=== PATIENT | female | born 1950 | race Two or more races ===

== ENCOUNTER 2021-04-04 10:11 | Outpatient (REF) | payer MEDICARE, SELFPAY ==
[2021-04-04 13:56] LABS: MANUAL DIFF FLAG NO
[2021-04-04 14:03] LABS: Basophils Absolute Auto 0.1 X10*3/uL (0.0-0.2); Basophils Percent Auto 0.9 % (0-2); Eosinophils Absolute Auto 0.4 X10*3/uL (0.0-0.4); Hematocrit 39.8 % (37-47); Hemoglobin 12.8 g/dl (12.0-16.0); Imm Gran Abs Auto 0.03 X10*3/uL (0.00-0.03); Imm Gran Pct Auto 0.3 % (0.0-0.4); Lymphocytes Absolute Auto 2.7 X10*3/uL (1.2-4.9); Lymphocytes Percent Auto 30.5 % (20-40); Mean Corpuscular HGB Conc 32.2 g/dl (31.0-35.0); Mean Corpuscular Hemoglobin 28.1 pg (27.0-33.0); Mean Corpuscular Volume 87.5 fL (80-98); Mean Platelet Volume 9.7 fL (9.4-12.3); Monocytes Absolute Auto 0.5 X10*3/uL (0.1-1.2); Monocytes Percent Auto 5.4 % (2-11); Neutrophils Absolute Auto 5.1 X10*3/uL (2.0-8.3); Neutrophils Percent Auto 58.9 % (45-73); Platelet Count 366 X10*3/uL (160-400); Red Blood Count 4.55 X10*6/uL (4.20-5.50); Red Cell Distribution Width 13.3 % (11.0-16.0); White Blood Count 8.7 X10*3/uL (4.8-10.8)
[2021-04-04 14:16] LABS: Alanine Aminotransferase 14 U/L (0-31); Albumin Level 4.2 g/dL (3.5-5.0); Alkaline Phosphatase 120 U/L (39-117); Anion Gap 11 (12-20); Aspartate Amino Transferase 18 U/L (5-31); Bilirubin Total 0.5 mg/dL (0.0-1.0); Blood Urea Nitrogen 20 mg/dL (9-16); Calcium 10.1 mg/dL (8.4-10.2); Carbon Dioxide 27 mmol/L (22-29); Chloride 108 mmol/L (96-108); Cholesterol 152 mg/dL; Estimated Glomerular Filt Rate > 60; Glucose Random 127 mg/dL (60-115); HDL Cholesterol 46 mg/dL; LDL Cholesterol Calculated 90 mg/dl; Potassium 4.9 mmol/L (3.3-5.1); Sodium 141 mmol/L (135-145); Total Protein 7.5 g/dL (6.5-8.0); Triglycerides 81 mg/dL
[2021-04-04 14:37] LABS: Creatinine Urine 117.43 mg/dL; Microalbum/Creatinine Ratio Ur 8.5 ug/mg cr
[2021-04-04 14:41] LABS: Vitamin D 25-OH Total 29.8 ng/mL (>30)
[2021-04-04 14:48] LABS: Folate 10.9 ng/mL (> or = 4.0); Vitamin B12 > 2000 pg/mL (200-900)
[2021-04-04 14:49] LABS: Estimated Average Glucose 143 mg/dL; Hemoglobin A1C 149.2514 umol/L; Hemoglobin A1c % 6.6 %
== END 2021-04-04 10:12 | disposition home or self-care (01) ==
LOC: HO.10HDL 10:11
PROVIDERS: Visit Provider Internal Medicine
DX: E78.00 Pure hypercholesterolemia, unspecified (principal); E11.65 Type 2 diabetes mellitus with hyperglycemia; I10 Essential (primary) hypertension
CPT/HCPCS: 36415; 80053; 80061; 82043; 82306; 82607; 82746; 83036; 84439; 84443; 85025

== ENCOUNTER 2022-02-25 12:46 | Outpatient (REF) | payer MEDICARE, SELFPAY ==
--- NOTE | ~2022-02-25 | MM_ITS ---
EXAMINATION: BONE DENSITOMETRY CLINICAL INDICATION: Osteoporosis. COMPARISON: Previous BD dated 04/12/2019 and baseline BD dated 12/09/2012. TECHNIQUE: Using a [employer] DXA System (software version: 13.1) manufactured by [employer], dual-energy x-ray absorptiometry was performed of the lumbar spine and left hip. The images are of good technical quality. Summary results are attached. FINDINGS: AP SPINE L1-L4: Current: BMD 0.991 g/cm2, Z-score 0.0, T-score -1.6, osteopenia, 1.3% decrease from previous, 3.7% increase from baseline (<5% change is not significant). Prior: BMD 1.004 g/cm2. Baseline: BMD 0.956 g/cm2. LEFT FEMUR, NECK: Current: BMD 0.873 g/cm2, Z-score 0.5, T-score -1.2, osteopenia. Prior: BMD 0.901 g/cm2. Baseline: BMD 0.918 g/cm2. LEFT FEMUR, TOTAL: Current: BMD 0.851 g/cm2, Z-score 0.2, T-score -1.2, osteopenia, 6.4% decrease from previous, 4.0% decrease from baseline (<5% change is not significant). Prior: BMD 0.909 g/cm2. Baseline: BMD 0.886 g/cm2. IDENTIFIED RISK FACTORS: Menopause, rheumatoid arthritis. HISTORY OF FRACTURE: None listed. MEDICATIONS: Vitamin D. MM/XR DEXA axial skeleton IMPRESSION: 1. DIAGNOSIS: Osteopenia based on the lowest T-score value of -1.6 in the lumbar spine applying World Health Organization criteria. 2. 10-YEAR FRACTURE RISK PREDICTION, FRAX: Major osteoporotic fracture (clinical spine, forearm, hip or shoulder) 6.7%. Hip fracture 0.9%. 3. Treatment Recommendations: NOF guidelines recommend consideration for treatment in postmenopausal women and men age 50 and older presenting with the following: -A hip or vertebral (clinical or morphometric) fracture. -T-score less than or equal to -2.5 at the femoral neck or spine after appropriate evaluation to exclude secondary causes. -Low bone mass at the hip or spine and a 10-year fracture probability by FRAX of greater than or equal to 3% for hip fracture or greater than or equal to 20% for major osteoporotic fracture based on the [place] adapted WHO algorithm. 4. Other Recommendations: All treatment decisions require clinical judgment and consideration of individual patient factors, including patient preferences, comorbidities, previous drug use, risk factors not captured in the FRAX model (e.g. frailty, falls, vitamin D deficiency, increased bone turnover, interval significant decline in bone density) and possible under or overestimation of fracture risk by FRAX. Additional medical evaluation for secondary cause of low bone mineral density may be appropriate. FUTURE SCAN RECOMMENDATION: People with diagnosed cases of osteoporosis or at high risk for fracture should have regular bone mineral density tests. For patients eligible for Medicare, routine testing is allowed once every 2 years. The testing frequency can be increased to one year for patients who have rapidly progressing disease, those who are receiving or discontinuing medical therapy to restore bone mass, or have additional risk factors.
== END 2022-02-25 12:47 | disposition home or self-care (01) ==
LOC: HO.MAMMO 12:46
PROVIDERS: PCP Internal Medicine; Visit Provider Internal Medicine
DX: Z13.820 Encounter for screening for osteoporosis (principal); M81.0 Age-related osteoporosis without current pathological fracture; Z78.0 Asymptomatic menopausal state
CPT/HCPCS: 77080

== ENCOUNTER 2022-08-31 08:54 | Outpatient (REF) | payer MEDICARE, SELFPAY ==
[2022-08-31 10:40] LABS: MANUAL DIFF FLAG NO
[2022-08-31 10:45] LABS: Basophils Absolute Auto 0.1 X10*3/uL (0.0-0.2); Eosinophils Absolute Auto 0.3 X10*3/uL (0.0-0.4); Eosinophils Percent Auto 3.9 % (0-4); Hematocrit 42.3 % (37.0-47.0); Hemoglobin 13.8 g/dl (12.0-16.0); Imm Gran Abs Auto 0.01 X10*3/uL (0.00-0.03); Imm Gran Pct Auto 0.1 % (0.0-0.4); Lymphocytes Absolute Auto 2.8 X10*3/uL (1.2-4.9); Lymphocytes Percent Auto 36.7 % (20-40); Mean Corpuscular HGB Conc 32.6 g/dl (31.0-35.0); Mean Corpuscular Hemoglobin 28.8 pg (27.0-33.0); Mean Corpuscular Volume 88.1 fL (80.0-98.0); Mean Platelet Volume 9.5 fL (9.4-12.3); Monocytes Absolute Auto 0.5 X10*3/uL (0.1-1.2); Monocytes Percent Auto 5.9 % (2-11); Neutrophils Percent Auto 52.4 % (45-73); Platelet Count 350 X10*3/uL (160-400); Red Cell Distribution Width 13.3 % (11.0-16.0); White Blood Count 7.7 X10*3/uL (4.8-10.8)
[2022-08-31 11:05] LABS: Estimated Average Glucose 148 mg/dL; Hemoglobin A1c % 6.8 %
[2022-08-31 11:07] LABS: Alanine Aminotransferase 14 U/L (0-31); Albumin Level 4.2 g/dL (3.5-5.0); Alkaline Phosphatase 104 U/L (39-117); Anion Gap 13 (12-20); Aspartate Amino Transferase 18 U/L (5-31); Bilirubin Total 0.5 mg/dL (0.0-1.0); Blood Urea Nitrogen 20 mg/dL (9-16); Carbon Dioxide 27 mmol/L (22-29); Chloride 105 mmol/L (96-108); Cholesterol 186 mg/dL; Estimated Glomerular Filt Rate > 60; Glucose Random 141 mg/dL (60-115); HDL Cholesterol 51 mg/dL; LDL Cholesterol Calculated 112 mg/dl; Potassium 5.2 mmol/L (3.3-5.1); Sodium 140 mmol/L (135-145); Total Protein 7.3 g/dL (6.5-8.0); Triglycerides 117 mg/dL
[2022-08-31 11:31] LABS: Erythrocyte Sedimentation Rate 16 MM/HR (0-20)
[2022-08-31 11:38] LABS: Folate 7.6 ng/mL (> or = 4.0); Free T4 (Free Thyroxine) 0.98 ng/dL (0.71-1.85); Thyroid Stimulating Hormone 1.44 uIU/mL (0.32-4.0); Vitamin B12 651 pg/mL (200-900); Vitamin D 25-OH Total 30.7 ng/mL (>30)
[2022-08-31 14:39] LABS: Creatinine Urine 127.19 mg/dL
== END 2022-08-31 08:55 | disposition home or self-care (01) ==
LOC: HO.10HDL 08:54
PROVIDERS: Visit Provider Internal Medicine
DX: M06.9 Rheumatoid arthritis, unspecified (principal); I10 Essential (primary) hypertension; E78.00 Pure hypercholesterolemia, unspecified; E11.65 Type 2 diabetes mellitus with hyperglycemia; M81.0 Age-related osteoporosis without current pathological fracture
CPT/HCPCS: 36415; 80053; 80061; 82043; 82306; 82607; 82746; 83036; 84439; 84443; 85025; 85652

== ENCOUNTER 2023-03-29 12:26 | Outpatient (AMB) | payer MEDICARE, SELFPAY ==
[2023-03-29 12:35] VITALS: BP 122/80; PULSE 72; O2SAT 99; BMI 27.1
--- NOTE | 2023-03-29 12:35 | A.OFFPC_ITS ---
Vital Signs 03/29/23 12:35 Height 5 ft Weight 139 lb BMI 27.1 BP 122/80 Blood Pressure Location Lt brachial Position Sitting Pulse 72 Pulse Source Pulse Oximeter Temp Source Skin Pulse Oximetry (%) 99 Oxygen Delivery Method Room Air Intake Visit Reasons: 6 month follow up Intake Note: Patient is here to follow up on 6 months Presiding Judge Required: No Allergies lisinopril Allergy (Unknown, Verified 03/29/23 12:42) Unknown metformin Allergy (Unknown, Verified 03/29/23 12:42) unknown Medication List - Last Reconciled 03/29/23 by rGey Jaeger MD blood pressure monitor (Blood Pressure Kit) As directed blood sugar diagnostic (FreeStyle Lite Strips) 1 strip miscellaneous DAILY cholecalciferol (vitamin D3) 25 mcg PO DAILY 90 days glimepiride 4 mg PO QAM lancets (FreeStyle Lancets) 28 gauge topical DAILY olmesartan 20 mg PO DAILY simvastatin 40 mg PO BEDTIME Tobacco use date assessed: 03/29/23 Fall risk assessment: No Falls in past year Last assessed Fall Risk: 03/29/23 Dental Screening Dental Screen Date: 03/29/23 Did you have a dental visit in the last 12 months?: Yes Did you have a dental problem in the last 6 months where you did not have access to dental care?: No Was dental information given to patient?: Patient has dentist HPI 6 month follow up HPI Details 72-year-old overweight female with contr olled diabetes mellitus rheumatoid arthritis hypertension hypercholesterolemia and generalized anxiety disorder last seen in September 2022. Patient is here for follow-up. August 2022 last blood work [facility] Medical History (Updated 09/04/22 @ 14:27 by Grey Jaeger MD) Osteopenia Meléndez's palsy Hypertension Hypercholesterolemia Vitamin D deficiency Overweight (BMI 25.0-29.9) Rheumatoid arthritis Type 2 diabetes mellitus with hyperglycemia Surgical History No pertinent past surgical history Family History Father Diabetes Mother Diabetes Hypertension Brother Brain cancer Maternal Grandfather Colon cancer Social History (Updated 09/04/22 @ 14:28 by Grey Jaeger MD) Housing: Apartment Alcohol intake: current Alcohol intake frequency: holidays/special occasions only Patient Tobacco Use Status: Never used Tobacco e-Cigarette/Vaping Use: Never Used Second Hand Smoke Exposure: No service: No Current occupational status: retired Cognitive needs: No Hearing needs: No Vision needs: Yes (reading glasses) Questionnaire PHQ-9 Over the last 2 weeks, how often have you been bothered by any of the following problems? 1. Little interest or pleasure in doing things: not at all 2. Feeling down, depressed, or hopeless: not at all 3. Trouble falling or staying asleep, or sleeping too much: not at all 4. Feeling tired or having little energy: not at all 5. Poor appetite or overeating: not at all 6. Feeling bad about yourself - or that you are a failure or have let yourself or your family down: not at all 7. Trouble concentrating on things, such as reading the newspaper or watching television: not at all 8. Moving or speaking so slowly that other people could have noticed. Or the opposite - being so fidgety or restless that you have been moving around a lot more than usual: not at all 9. Thoughts that you would be better off or of hurting yourself in some way: not at all Total score: 0 Depression Screening Interpretation: Negative Source: Developed by Drs. Lencho Lowe, Paola Hong, Omar Kelley and colleagues, with an educational rosa from [employer]. Thrive Questionnaire Date Thrive assessed: 09/04/22 AUDIT C Alcohol Use Questionnaire (AUDIT-C) 1. How often do you have a drink containing alcohol?: Monthly or less 2. How many drinks containing alcohol do you have on a typical day when you are drinking?: 1 or 2 3. How often do you have six or more drinks on one occasion?: Never Total Score: 1 NELDA-7 AMB Questionnaire NELDA-7 Date NELDA - 7 assessed: 09/04/22 Feeling nervous, anxious, or on edge: 0 = Not at all Not being able to stop or control worryin = Not at all Worrying too much about different things: 0 = Not at all Trouble relaxin = Not at all Being so restless that it is hard to sit still: 0 = Not at all Becoming easily annoyed or irritable: 0 = Not at all Feeling afraid as if something awful might happen: 0 = Not at all Total NELDA-7 score (0-4 normal; 5-9 mild; 10-14 moderate; 15-21 severe): 0 Source: Developed by Drs. Lencho Lowe, Paola Hong, Omar Kelley and colleagues, with an educational rosa from [employer]. Physical exam (Primary Care) Vital Signs: Last Vital Signs Pulse 72 03/29/23 12:35 BP 122/80 03/29/23 12:35 Pulse Ox 99 03/29/23 12:35 Oxygen Delivery Method Room Air 03/29/23 12:35 BMI result Body Mass Index 27.1 Tobacco/Smoking Status: Tobacco use Status Tobacco use date assessed 03/29/23 03/29/23 12:44 Patient Tobacco Use Status Never used Tobacco 03/29/23 12:44 e-Cigarette/Vaping Use Never Used 03/29/23 12:44 PHQ-9: PHQ-9 Score PHQ-9: Total score 0 03/29/23 19:58 Depression Screening Interpretation: Negative Thrive Assessment: Date of Thrive Assessment Date Thrive assessed 09/04/22 03/29/23 12:44 Const General: alert; No acute distress Eyes Conjunctivae: conjunctivae normal Resp Auscultation: clear to auscultation bilaterally Cardio Rate: regular rate Rhythm: regular rhythm GI Inspection: Yes normal to inspection Extrem General: Yes normal to inspection and No edema Results AMB Hemoglobin A1c AMB Hemoglobin A1c 6.4 % Last Edit by JIA Yates on 03/29/23 12:49 Results Reviewed Results Reviewed: Laboratory Last Values Hgb A1c (Clinic) 6.4 % (4.0-6.0) H 03/29/23 12:35 Assessment and Plan Assessment & Plan (1) Type 2 diabetes mellitus with hyperglycemia: Comment: [facility] September [id number] Eyesight and surgery Ass. [id number] Code(s): E11.65 - Type 2 diabetes mellitus with hyperglycemia Qualifiers: Diabetes mellitus snf insulin use: without buttermaker continuous churn use Qualified Code(s): E11.65 - Type 2 diabetes mellitus with hyperglycemia Plan: Decrease the amount of carbohydrate intake, pasta, bread, rice and potatoes are all sugar and that is aside from all the sweet stuff, remember that fruits are good but they are Sweet also. Hemoglobin A1c goal of less than 7.0. Patient is on glimepiride 4 mg once a day (2) Overweight (BMI 25.0-29.9): Code(s): E66.3 - Overweight Plan: Diet and exercise (3) Hypertension: Code(s): I10 - Essential (primary) hypertension Qualifiers: Hypertension type: essential hypertension Qualified Code(s): I10 - Essential (primary) hypertension Plan: Continue with blood pressure medication. Decrease salt intake and exercise patient on olmesartan on 20 mg once a day (4) Hypercholesterolemia: Code(s): E78.00 - Pure hypercholesterolemia, unspecified Plan: Avoid fried foods, chicken skin, eggs, butter margarine, pastries and meat. Be it pork or beef they have a lot of cholesterol LDL goal of less than 100 and triglyceride of less than 150 Orders: Orders AMB Hemoglobin A1c Today E11.65 - Type 2 diabetes mellitus with hyperglycemia Medications: Refilled olmesartan 20 mg PO DAILY 90 tabs 2RF I10 - Essential (primary) hypertension simvastatin 40 mg PO BEDTIME 90 tabs 2RF E78.00 - Pure hypercholesterolemia, unspecified Coding Level of Care Code Est Pt Level 4 (94651) Diagnoses Type 2 diabetes mellitus with hyperglycemia, without long-term current use of insulin E11.65 Diabetes mellitus snf insulin use: without snf use Overweight (BMI 25.0-29.9) E66.3 Essential hypertension I10 Hypertension type: essential hypertension Hypercholesterolemia E78.00
== END 2023-03-29 13:11 | disposition home or self-care (01) ==
PROVIDERS: PCP Internal Medicine; Visit Provider Internal Medicine
DX: E11.65 Type 2 diabetes mellitus with hyperglycemia (principal)
CPT/HCPCS: 83036; 99214

== ENCOUNTER 2023-03-30 07:45 | Outpatient (REF) | payer MEDICARE, SELFPAY ==
[2023-03-30 09:42] LABS: Alanine Aminotransferase 11 U/L (0-31); Albumin Level 4.1 g/dL (3.5-5.0); Alkaline Phosphatase 104 U/L (39-117); Anion Gap 15 (12-20); Aspartate Amino Transferase 16 U/L (5-31); Bilirubin Total 0.3 mg/dL (0.0-1.0); Blood Urea Nitrogen 17 mg/dL (9-16); Calcium 9.9 mg/dL (8.4-10.2); Carbon Dioxide 25 mmol/L (22-29); Chloride 106 mmol/L (96-108); Cholesterol 146 mg/dL (<200); Estimated Glomerular Filt Rate > 60; Glucose Random 151 mg/dL (60-115); HDL Cholesterol 48 mg/dL (>40); LDL Cholesterol Calculated 83 mg/dL (<100); Potassium 4.2 mmol/L (3.3-5.1); Sodium 142 mmol/L (135-145); Total Protein 7.4 g/dL (6.5-8.0); Triglycerides 77 mg/dL (<150)
== END 2023-03-30 07:46 | disposition home or self-care (01) ==
LOC: HO.LAB 07:45
PROVIDERS: PCP Internal Medicine; Visit Provider Internal Medicine
DX: E78.00 Pure hypercholesterolemia, unspecified (principal)
CPT/HCPCS: 36415; 80053; 80061

== ENCOUNTER 2023-07-06 12:18 | Outpatient (AMB) | payer MEDICARE, SELFPAY ==
--- NOTE | 2023-07-06 12:31 | MHC.PC.OV ---
Vital Signs 07/06/23 12:34 Height 5 ft Weight 131 lb BMI 25.6 BP 118/78 Blood Pressure Location Lt brachial Position Sitting Pulse 77 Pulse Source Pulse Oximeter Pulse Oximetry (%) 99 Oxygen Delivery Method Room Air Intake Visit Reasons: cholesterol, DM Allergies lisinopril Allergy (Unknown, Verified 03/29/23 12:42) Unknown metformin Allergy (Unknown, Verified 03/29/23 12:42) unknown Medication List - Last Reconciled 07/06/23 by Grey Jaeger MD blood pressure monitor (Blood Pressure Kit) As directed blood sugar diagnostic (FreeStyle Lite Strips) 1 strip miscellaneous DAILY cholecalciferol (vitamin D3) 25 mcg PO DAILY 90 days glimepiride 4 mg PO QAM lancets (FreeStyle Lancets) 28 gauge topical DAILY olmesartan 20 mg PO DAILY simvastatin 40 mg PO BEDTIME Tobacco use date assessed: 07/06/23 Fall risk assessment: No Falls in past year Last assessed Fall Risk: 07/06/23 HPI cholesterol, DM HPI Details 72-year-old overweight female with controlled diabetes mellitus hypertension hypercholesterolemia last seen in March 2023. Patient comes in for follow-up. anxious about children but no other complains [facility] Medical History (Updated 09/04/22 @ 14:27 by Grey Jaeger MD) Osteopenia Meléndez's palsy Hypertension Hypercholesterolemia Vitamin D deficiency Overweight (BMI 25.0-29.9) Rheumatoid arthritis Type 2 diabetes mellitus with hyperglycemia Surgical History No pertinent past surgical history Family History Father Diabetes Mother Diabetes Hypertension Brother Brain cancer Maternal Grandfather Colon cancer Social History (Updated 09/04/22 @ 14:28 by Grey Jaeger MD) Housing: Apartment Alcohol intake: current Alcohol intake frequency: holidays/special occasions only Patient Tobacco Use Status: Never used Tobacco e-Cigarette/Vaping Use: Never Used Second Hand Smoke Exposure: No service: No Current occupational status: retired Cognitive needs: No Hearing needs: No Vision needs: Yes (reading glasses) Questionnaire Thrive Questionnaire Date Thrive assessed: 09/04/22 AUDIT C Alcohol Use Questionnaire (AUDIT-C) 1. How often do you have a drink containing alcohol?: Monthly or less 2. How many drinks containing alcohol do you have on a typical day when you are drinking?: 1 or 2 3. How often do you have six or more drinks on one occasion?: Never Total Score: 1 NELDA-7 AMB Questionnaire NELDA-7 Date NELDA - 7 assessed: 09/04/22 Source: Developed by Drs. Lencho Lowe, Paola Hong, Omar Kelley and colleagues, with an educational rosa from [employer]. Physical exam (Primary Care) Vital Signs: Last Vital Signs Pulse 77 07/06/23 12:34 BP 118/78 07/06/23 12:34 Pulse Ox 99 07/06/23 12:34 Oxygen Delivery Method Room Air 07/06/23 12:34 BMI result Body Mass Index 25.6 Tobacco/Smoking Status: Tobacco use Status Tobacco use date assessed 07/06/23 07/06/23 12:38 Patient Tobacco Use Status Never used Tobacco 07/06/23 12:32 e-Cigarette/Vaping Use Never Used 07/06/23 12:32 Thrive Assessment: Date of Thrive Assessment Date Thrive assessed 09/04/22 07/06/23 12:32 Const General: alert; No acute distress Eyes Conjunctivae: conjunctivae normal Resp Auscultation: clear to auscultation bilaterally Cardio Rate: regular rate Rhythm: regular rhythm GI Inspection: Yes normal to inspection Extrem General: Yes normal to inspection and No edema Results AMB Hemoglobin A1c AMB Hemoglobin A1c 7.8 % Last Edit by JIA Yates on 07/06/23 12:47 Assessment and Plan Assessment & Plan (1) Type 2 diabetes mellitus with hyperglycemia: Comment: [facility] September [id number] Eyesight and surgery Ass. [id number] Code(s): E11.65 - Type 2 diabetes mellitus with hyperglycemia Qualifiers: Diabetes mellitus termite control servicer insulin use: without termite control servicer use Qualified Code(s): E11.65 - Type 2 diabetes mellitus with hyperglycemia Plan: Decrease the amount of carbohydrate intake, pasta, bread, rice and potatoes are all sugar and that is aside from all the sweet stuff, remember that fruits are good but they are Sweet also. Hemoglobin A1c goal of less than 7.0 patient on glimepiride 4 mg once a day. AIC all of a sudden increased . would like tohold off new med (2) Overweight (BMI 25.0-29.9): Code(s): E66.3 - Overweight Plan: Diet and exercise (3) Hypertension: Code(s): I10 - Essential (primary) hypertension Qualifiers: Hypertension type: essential hypertension Qualified Code(s): I10 - Essential (primary) hypertension Plan: Continue with blood pressure medication. Decrease salt intake and exercise on almost start on 20 mg once a day (4) Hypercholesterolemia: Code(s): E78.00 - Pure hypercholesterolemia, unspecified Plan: Avoid fried foods, chicken skin, eggs, butter margarine, pastries and meat. Be it pork or beef they have a lot of cholesterol LDL goal of less than 100 and triglyceride of less than 150. Last blood work was done in March 2020 Orders: Orders Complete Blood Count Auto Diff 3 Months E11.65 - Type 2 diabetes mellitus with hyperglycemia Comprehensive Met. Panel 3 Months E11.65 - Type 2 diabetes mellitus with hyperglycemia Microalbumin, Random (w Creat) 3 Months E11.65 - Type 2 diabetes mellitus with hyperglycemia Creatinine Urine 3 Months E11.65 - Type 2 diabetes mellitus with hyperglycemia AMB Hemoglobin A1c Today E11.65 - Type 2 diabetes mellitus with hyperglycemia Free T4 (Free Thyroxine) 3 Months E11.65 - Type 2 diabetes mellitus with hyperglycemia Thyroid Stimulating Hormone 3 Months E11.65 - Type 2 diabetes mellitus with hyperglycemia Lipid Panel 3 Months E11.65 - Type 2 diabetes mellitus with hyperglycemia, E78.00 - Pure hypercholesterolemia, unspecified Vitamin B12 and Folate 3 Months E11.65 - Type 2 diabetes mellitus with hyperglycemia Vitamin D 25-OH Total 3 Months E11.65 - Type 2 diabetes mellitus with hyperglycemia Hemoglobin A1c 3 Months E11.65 - Type 2 diabetes mellitus with hyperglycemia Medications: Refilled glimepiride 4 mg PO QAM 90 tabs 2RF E11.65 - Type 2 diabetes mellitus with hyperglycemia Coding Level of Care Code Est Pt Level 4 (25929) Diagnoses Type 2 diabetes mellitus with hyperglycemia, without long-term current use of insulin E11.65 Diabetes mellitus termite control servicer insulin use: without usp use Overweight (BMI 25.0-29.9) E66.3 Essential hypertension I10 Hypertension type: essential hypertension Hypercholesterolemia E78.00
[2023-07-06 12:34] VITALS: BP 118/78; PULSE 77; O2SAT 99; BMI 25.6
== END 2023-07-06 12:57 | disposition home or self-care (01) ==
PROVIDERS: PCP Internal Medicine; Visit Provider Internal Medicine
DX: E11.65 Type 2 diabetes mellitus with hyperglycemia (principal); E66.3 Overweight; I10 Essential (primary) hypertension; E78.00 Pure hypercholesterolemia, unspecified
CPT/HCPCS: 83036; 99214

== ENCOUNTER 2023-10-04 09:24 | Outpatient (REF) | payer MEDICARE, SELFPAY ==
[2023-10-04 09:36] LABS: MANUAL DIFF FLAG NO
[2023-10-04 09:45] LABS: Basophils Absolute Auto 0.1 X10*3/uL (0.0-0.2); Basophils Percent Auto 0.6 % (0-2); Eosinophils Absolute Auto 0.2 X10*3/uL (0.0-0.4); Eosinophils Percent Auto 2.4 % (0-4); Hematocrit 40.3 % (37.0-47.0); Hemoglobin 13.2 g/dl (12.0-16.0); Imm Gran Abs Auto 0.03 X10*3/uL (0.00-0.03); Imm Gran Pct Auto 0.3 % (0.0-0.4); Lymphocytes Absolute Auto 2.6 X10*3/uL (1.2-4.9); Mean Corpuscular HGB Conc 32.8 g/dl (31.0-35.0); Mean Corpuscular Hemoglobin 29.1 pg (27.0-33.0); Mean Platelet Volume 9.1 fL (9.4-12.3); Monocytes Absolute Auto 0.5 X10*3/uL (0.1-1.2); Monocytes Percent Auto 5.8 % (2-11); Neutrophils Absolute Auto 5.3 x10*3/uL (2.0-8.3); Neutrophils Percent Auto 60.9 % (45-73); Platelet Count 331 X10*3/uL (160-400); Red Blood Count 4.53 X10*6/uL (4.20-5.50); Red Cell Distribution Width 13.5 % (11.0-16.0); White Blood Count 8.6 X10*3/uL (4.8-10.8)
[2023-10-04 09:55] LABS: Estimated Average Glucose 148 mg/dL; Hemoglobin A1c % 6.8 % (<6.0)
[2023-10-04 10:17] LABS: Alanine Aminotransferase 11 U/L (0-31); Albumin Level 4.2 g/dL (3.5-5.0); Alkaline Phosphatase 116 U/L (39-117); Anion Gap 11 (12-20); Aspartate Amino Transferase 14 U/L (5-31); Bilirubin Total 0.3 mg/dL (0.0-1.0); Blood Urea Nitrogen 31 mg/dL (9-16); Calcium 10.1 mg/dL (8.4-10.2); Carbon Dioxide 27 mmol/L (22-29); Chloride 110 mmol/L (96-108); Cholesterol 156 mg/dL (<200); Estimated Glomerular Filt Rate > 60; Glucose Random 161 mg/dL (60-115); HDL Cholesterol 51 mg/dL (>40); LDL Cholesterol Calculated 92 mg/dL (<100); Potassium 4.3 mmol/L (3.3-5.1); Sodium 144 mmol/L (135-145); Total Protein 7.6 g/dL (6.5-8.0); Triglycerides 69 mg/dL (<150)
[2023-10-04 10:42] LABS: Free T4 (Free Thyroxine) 1.02 ng/dL (0.71-1.85); Thyroid Stimulating Hormone 0.91 uIU/mL (0.32-4.0)
[2023-10-04 10:46] LABS: Creatinine Urine 89.64 mg/dL; Microalbum/Creatinine Ratio Ur 11.1 ug/mg cr (<30)
[2023-10-04 10:54] LABS: Folate 7.8 ng/mL (> or = 4.0); Vitamin B12 500 pg/mL (200-900)
== END 2023-10-04 09:25 | disposition home or self-care (01) ==
LOC: HO.LAB 09:24
PROVIDERS: PCP Internal Medicine; Visit Provider Internal Medicine
DX: E11.65 Type 2 diabetes mellitus with hyperglycemia (principal); E78.00 Pure hypercholesterolemia, unspecified
CPT/HCPCS: 36415; 80053; 80061; 82043; 82306; 82570; 82607; 82746; 83036; 84439; 84443; 85025

== ENCOUNTER 2023-10-05 13:17 | Outpatient (AMB) | payer MEDICARE, SELFPAY ==
[2023-10-05 13:18] VITALS: BP 142/80; PULSE 82; O2SAT 98; BMI 25.4
--- NOTE | 2023-10-05 13:18 | A.OFFPC_ITS ---
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 Allergies lisinopril Allergy (Unknown, Verified 10/05/23 13:19) Unknown metformin Allergy (Unknown, Verified 10/05/23 13:19) unknown Medication List - Last Reconciled 10/05/23 by Grey Jaeger MD blood pressure monitor (Blood Pressure Kit) As directed blood sugar diagnostic (FreeStyle Lite Strips) 1 strip miscellaneous DAILY cholecalciferol (vitamin D3) 25 mcg PO DAILY 90 days glimepiride 4 mg PO QAM lancets (FreeStyle Lancets) 28 gauge topical DAILY olmesartan 20 mg PO DAILY simvastatin 40 mg PO BEDTIME Tobacco use date assessed: 10/05/23 Fall risk assessment: No Falls in past year Last assessed Fall Risk: 10/05/23 Dental Screening Dental Screen Date: 03/29/23 HPI DM HPI Details 72-year-old female with diabetes mellitu s uncontrolled hypertension hypercholesterolemia last seen in July 2023. Patient has declined mammogram and colonoscopy. Is presently stressed out as the son and daughter have no methodist and has been smoking marijuana. [facility] Medical History (Updated 09/04/22 @ 14:27 by Grey Jaeger MD) Osteopenia Meléndez's palsy Hypertension Hypercholesterolemia Vitamin D deficiency Overweight (BMI 25.0-29.9) Rheumatoid arthritis Type 2 diabetes mellitus with hyperglycemia Surgical History No pertinent past surgical history Family History Father Diabetes Mother Diabetes Hypertension Brother Brain cancer Maternal Grandfather Colon cancer Social History (Updated 09/04/22 @ 14:28 by Grey Jaeger MD) Housing: Apartment Alcohol intake: current Alcohol intake frequency: holidays/special occasions only Patient Tobacco Use Status: Never used Tobacco e-Cigarette/Vaping Use: Never Used Second Hand Smoke Exposure: No service: No Current occupational status: retired Cognitive needs: No Hearing needs: No Vision needs: Yes (reading glasses) Questionnaire Thrive Questionnaire Date Thrive assessed: 10/05/23 I am a: Patient What is your living situation today?: I have a steady place to live Within the past 12 months, did the food you bought not last and you didn't have the money to get more?: Never true Within the past 12 months, did you worry whether your food would run out before you got money to buy more?: Never true Do you have trouble paying for medicines?: No Do you have trouble getting transportation to medical appointments?: No Do you have trouble paying your heating and electricity bill?: No Do you have trouble taking care of your child, family member or friend?: No Do you have trouble with day-to-day activities such as bathing, preparing meals, shopping, managing finances, etc.?: No Are you currently unemployed and looking for a job?: No Are you interested in more education?: No Please select the resources that you would like help with: None Currently or been in a relationship where the following occur: no concerns reported THRIVE Score: 0 AUDIT C Alcohol Use Questionnaire (AUDIT-C) 1. How often do you have a drink containing alcohol?: Monthly or less 2. How many drinks containing alcohol do you have on a typical day when you are drinking?: 1 or 2 3. How often do you have six or more drinks on one occasion?: Never Total Score: 1 NELDA-7 AMB Questionnaire NELDA-7 Date NELDA - 7 assessed: 09/04/22 Source: Developed by Drs. Lencho Lowe, Paola Hong, Omar Kelley and colleagues, with an educational rosa from [employer] Physical exam (Primary Care) Vital Signs: Last Vital Signs Pulse 82 10/05/23 13:18 BP 142/80 H 10/05/23 13:18 Pulse Ox 98 10/05/23 13:18 Oxygen Delivery Method Room Air 10/05/23 13:18 BMI result Body Mass Index 25.4 Tobacco/Smoking Status: Tobacco use Status Tobacco use date assessed 10/05/23 10/05/23 13:20 Patient Tobacco Use Status Never used Tobacco 10/05/23 13:20 e-Cigarette/Vaping Use Never Used 10/05/23 13:20 Thrive Assessment: Date of Thrive Assessment Date Thrive assessed 10/05/23 10/05/23 13:20 Currently or been in a relationship where the following occur: no concerns reported Const General: alert; No acute distress Eyes Conjunctivae: conjunctivae normal Resp Auscultation: clear to auscultation bilaterally Cardio Rate: regular rate Rhythm: regular rhythm GI Inspection: Yes normal to inspection Extrem General: Yes normal to inspection and No edema Assessment and Plan Assessment & Plan (1) Type 2 diabetes mellitus with hyperglycemia: Comment: [facility] September [id number] Eyesight and surgery Ass. [id number] Code(s): E11.65 - Type 2 diabetes mellitus with hyperglycemia Qualifiers: Diabetes mellitus parts counterman insulin use: without half-way use Qualified Code(s): E11.65 - Type 2 diabetes mellitus with hyperglycemia Plan: Decrease the amount of carbohydrate intake, pasta, bread, rice and potatoes are all sugar and that is aside from all the sweet stuff, remember that fruits are good but they are Sweet also. Hemoglobin A1c goal of less than 7.0. Patient on glimepiride 4 mg once a day. Denies any hypoglycemic episodes (2) Hypertension: Code(s): I10 - Essential (primary) hypertension Qualifiers: Hypertension type: essential hypertension Qualified Code(s): I10 - Essential (primary) hypertension Plan: Continue with blood pressure medication. Decrease salt intake and exercise presently on olmesartan 20 mg once a day. noted BP davis today - states stressful day today (3) Hypercholesterolemia: Code(s): E78.00 - Pure hypercholesterolemia, unspecified Plan: Avoid fried foods, chicken skin, eggs, butter margarine, pastries and meat. Be it pork or beef they have a lot of cholesterol LDL goal of less than 100 and triglyceride of less than 150. October 2023 last blood work (4) Generalized anxiety disorder: Code(s): F41.1 - Generalized anxiety disorder Coding Level of Care Code Est Pt Level 4 (66847) Diagnoses Type 2 diabetes mellitus with hyperglycemia, without long-term current use of insulin E11.65 Diabetes mellitus parts counterman insulin use: without parts counterman use Essential hypertension I10 Hypertension type: essential hypertension Hypercholesterolemia E78.00 Generalized anxiety disorder F41.1
[2023-10-05 13:46] VITALS: BP 140/80
== END 2023-10-05 14:01 | disposition home or self-care (01) ==
PROVIDERS: PCP Internal Medicine; Visit Provider Internal Medicine
DX: E11.65 Type 2 diabetes mellitus with hyperglycemia (principal); I10 Essential (primary) hypertension; E78.00 Pure hypercholesterolemia, unspecified; F41.1 Generalized anxiety disorder
CPT/HCPCS: 99214

== ENCOUNTER 2024-02-24 12:51 | Outpatient (AMB) | payer MEDICARE, SELFPAY ==
[2024-02-24 12:52] VITALS: BP 142/80; PULSE 71; O2SAT 97; BMI 25.0
--- NOTE | 2024-02-24 12:52 | A.OFFPC_ITS ---
Vital Signs 02/24/24 12:52 02/24/24 13:18 Height 5 ft Weight 128 lb BMI 25.0 BP 142/80 H 132/80 Blood Pressure Location Lt brachial Lt brachial Position Sitting Sitting Pulse 71 Pulse Source Pulse Oximeter Pulse Oximetry (%) 97 Oxygen Delivery Method Room Air Intake Visit Reasons: DM Allergies lisinopril Allergy (Unknown, Verified 02/24/24 12:53) Unknown metformin Allergy (Unknown, Verified 02/24/24 12:53) unknown Tobacco use date assessed: 10/05/23 Fall risk assessment: No Falls in past year Last assessed Fall Risk: 02/24/24 Dental Screening Dental Screen Date: 02/24/24 Did you have a dental visit in the last 12 months?: Yes Did you have a dental problem in the last 6 months where you did not have access to dental care?: No Was dental information given to patient?: Patient has dentist HPI DM HPI Details 73-year-old female with uncontrolled viviana betes mellitus hypertension hypercholesterolemia and generalized anxiety disorder last seen in 10/23/2023. aic in october is 6.8. deny hypoglycemia [facility] Medical History (Updated 09/04/22 @ 14:27 by Grey Jaeger MD) Osteopenia Meléndez's palsy Hypertension Hypercholesterolemia Vitamin D deficiency Overweight (BMI 25.0-29.9) Rheumatoid arthritis Type 2 diabetes mellitus with hyperglycemia Surgical History No pertinent past surgical history Family History Father Diabetes Mother Diabetes Hypertension Brother Brain cancer Maternal Grandfather Colon cancer Social History (Updated 09/04/22 @ 14:28 by Grey Jaeger MD) Housing: Apartment Alcohol intake: current Alcohol intake frequency: holidays/special occasions only Patient Tobacco Use Status: Never used Tobacco Tobacco use type: Cigarette e-Cigarette/Vaping Use: Never Used Second Hand Smoke Exposure: No service: No Current occupational status: retired Cognitive needs: No Hearing needs: No Vision needs: Yes (reading glasses) Questionnaire PHQ-9 Over the last 2 weeks, how often have you been bothered by any of the following problems? 1. Little interest or pleasure in doing things: not at all 2. Feeling down, depressed, or hopeless: not at all 3. Trouble falling or staying asleep, or sleeping too much: not at all 4. Feeling tired or having little energy: not at all 5. Poor appetite or overeating: not at all 6. Feeling bad about yourself - or that you are a failure or have let yourself or your family down: not at all 7. Trouble concentrating on things, such as reading the newspaper or watching television: not at all 8. Moving or speaking so slowly that other people could have noticed. Or the opposite - being so fidgety or restless that you have been moving around a lot more than usual: not at all 9. Thoughts that you would be better off or of hurting yourself in some way: not at all Total score: 0 Depression Screening Interpretation: Negative Depression Screening Done: Yes Source: Developed by Drs. Lencho Lowe, Paola Hong, Omar Kelley and colleagues, with an educational rosa from [employer]. Thrive Questionnaire Date Thrive assessed: 10/05/23 AUDIT C Alcohol Use Questionnaire (AUDIT-C) 1. How often do you have a drink containing alcohol?: Monthly or less 2. How many drinks containing alcohol do you have on a typical day when you are drinking?: 1 or 2 3. How often do you have six or more drinks on one occasion?: Never Total Score: 1 NELDA-7 AMB Questionnaire NELDA-7 Date NELDA - 7 assessed: 02/24/24 Feeling nervous, anxious, or on edge: 0 = Not at all Not being able to stop or control worryin = Not at all Worrying too much about different things: 0 = Not at all Trouble relaxin = Not at all Being so restless that it is hard to sit still: 0 = Not at all Becoming easily annoyed or irritable: 0 = Not at all Feeling afraid as if something awful might happen: 0 = Not at all Total NELDA-7 score (0-4 normal; 5-9 mild; 10-14 moderate; 15-21 severe): 0 Source: Developed by Drs. Lencho Lowe, Paola Hong, Omar Kelley and colleagues, with an educational rosa from [employer]. NELDA-7 Assessment Billing NELDA-7 Assessment Tool: NELDA-7 Assessment 32671 Physical exam (Primary Care) Vital Signs: Last Vital Signs Pulse 71 02/24/24 12:52 BP 132/80 02/24/24 13:18 Pulse Ox 97 02/24/24 12:52 Oxygen Delivery Method Room Air 02/24/24 12:52 BMI result Body Mass Index 25.0 Tobacco/Smoking Status: Tobacco use Status Tobacco use date assessed 10/05/23 02/24/24 12:54 Patient Tobacco Use Status Never used Tobacco 02/24/24 12:54 Tobacco use type Cigarette 02/24/24 12:54 e-Cigarette/Vaping Use Never Used 02/24/24 12:54 PHQ-9: PHQ-9 Score PHQ-9: Total score 0 02/24/24 13:13 Depression Screening Interpretation: Negative Thrive Assessment: Date of Thrive Assessment Date Thrive assessed 10/05/23 02/24/24 12:54 Const General: alert; No acute distress Eyes Conjunctivae: conjunctivae normal Resp Auscultation: clear to auscultation bilaterally Cardio Rate: regular rate Rhythm: regular rhythm GI Inspection: Yes normal to inspection Extrem General: Yes normal to inspection and No edema Results AMB Hemoglobin A1c AMB Hemoglobin A1c 7.3 % Last Edit by Lynda Reyes CMA on 02/24/24 13:26 Assessment and Plan Assessment & Plan (1) Type 2 diabetes mellitus with hyperglycemia: Comment: [facility] September [id number] Eyesight and surgery Ass. [id number] Code(s): E11.65 - Type 2 diabetes mellitus with hyperglycemia Qualifiers: Diabetes mellitus detention insulin use: without long term care pharmacist use Qualified Code(s): E11.65 - Type 2 diabetes mellitus with hyperglycemia Plan: Decrease the amount of carbohydrate intake, pasta, bread, rice and potatoes are all sugar and that is aside from all the sweet stuff, remember that fruits are good but they are Sweet also. Hemoglobin A1c goal of less than 7.0 on glimepiride decline another pill (2) Hypertension: Code(s): I10 - Essential (primary) hypertension Qualifiers: Hypertension type: essential hypertension Qualified Code(s): I10 - Essential (primary) hypertension Plan: Continue with blood pressure medication. Decrease salt intake and exercise takes olmesartan 20 mg once a day (3) Hypercholesterolemia: Code(s): E78.00 - Pure hypercholesterolemia, unspecified Plan: Avoid fried foods, chicken skin, eggs, butter margarine, pastries and meat. Be it pork or beef they have a lot of cholesterol LDL goal of less than 100 and triglyceride of less than 150 on simvastatin 40 mg at bedtime (4) Generalized anxiety disorder: Code(s): F41.1 - Generalized anxiety disorder Plan: Stable. Orders: Orders AMB Hemoglobin A1c Today E11.65 - Type 2 diabetes mellitus with hyperglycemia Medications: Refilled glimepiride 4 mg PO QAM 90 tabs 2RF E11.65 - Type 2 diabetes mellitus with hyperglycemia olmesartan 20 mg PO DAILY 90 tabs 2RF I10 - Essential (primary) hypertension simvastatin 40 mg PO BEDTIME 90 tabs 2RF E78.00 - Pure hypercholesterolemia, unspecified Coding Level of Care Code Est Pt Level 4 (19057) Diagnoses Type 2 diabetes mellitus with hyperglycemia, without long-term current use of insulin E11.65 Diabetes mellitus long term care pharmacist insulin use: without long term care pharmacist use Essential hypertension I10 Hypertension type: essential hypertension Hypercholesterolemia E78.00 Generalized anxiety disorder F41.1 Additional Codes NELDA-7 Assessment Billing - NELDA-7 Assessment Tool: NELDA-7 Assessment 35375 ([id number])
[2024-02-24 13:18] VITALS: BP 132/80
== END 2024-02-24 13:43 | disposition home or self-care (01) ==
PROVIDERS: PCP Internal Medicine; Visit Provider Internal Medicine
DX: E11.65 Type 2 diabetes mellitus with hyperglycemia (principal); I10 Essential (primary) hypertension; E78.00 Pure hypercholesterolemia, unspecified; F41.1 Generalized anxiety disorder
CPT/HCPCS: 83036; 99214

== ENCOUNTER 2024-08-25 13:31 | Outpatient (AMB) | payer MEDICARE, SELFPAY ==
[2024-08-25 13:34] VITALS: BP 132/70; PULSE 71; O2SAT 95; BMI 25.2
--- NOTE | 2024-08-25 13:34 | MHC.PC.OV ---
Vital Signs 08/25/24 13:34 Height 5 ft Weight 58.513 kg BMI 25.2 BP 132/70 Blood Pressure Location Lt brachial Position Sitting Pulse 71 Pulse Source Pulse Oximeter Pulse Oximetry (%) 95 Oxygen Delivery Method Room Air Intake Visit Reasons: DM follow up- see comments Intake Note: Patient does have cold symptoms, and is taking Tylenol cold and flu. Allergies lisinopril Allergy (Unknown, Verified 08/25/24 13:34) Unknown metformin Allergy (Unknown, Verified 08/25/24 13:34) unknown Tobacco use date assessed: 08/25/24 Fall risk assessment: No Falls in past year Last assessed Fall Risk: 08/25/24 Dental Screening Dental Screen Date: 08/25/24 Did you have a dental visit in the last 12 months?: Yes Did you have a dental problem in the last 6 months where you did not have access to dental care?: No Was dental information given to patient?: Patient has dentist HPI DM follow up- see comments HPI Details cough 1 week, no fevers, no sore throat , no sob, no b/b sx PFSH Medical History (Updated 08/25/24 @ 13:59 by Grey Jaeger MD) Osteopenia Meléndez's palsy Hypertension Hypercholesterolemia Vitamin D deficiency Overweight (BMI 25.0-29.9) Rheumatoid arthritis Type 2 diabetes mellitus with hyperglycemia Surgical History No pertinent past surgical history Family History (Updated 08/25/24 @ 13:35 by Nicole Freeman CMA) Father Diabetes Mother Diabetes Hypertension Brother Brain cancer Maternal Grandfather Colon cancer Social History (Updated 09/04/22 @ 14:28 by Grey Jaeger MD) Housing: Apartment Alcohol intake: current Alcohol intake frequency: holidays/special occasions only Patient Tobacco Use Status: Never used Tobacco Tobacco use type: Cigarette e-Cigarette/Vaping Use: Never Used Second Hand Smoke Exposure: No service: No Current occupational status: retired Cognitive needs: No Hearing needs: No Vision needs: Yes (reading glasses) Questionnaire PHQ-9 Over the last 2 weeks, how often have you been bothered by any of the following problems? 1. Little interest or pleasure in doing things: not at all 2. Feeling down, depressed, or hopeless: not at all 3. Trouble falling or staying asleep, or sleeping too much: not at all 4. Feeling tired or having little energy: not at all 5. Poor appetite or overeating: not at all 6. Feeling bad about yourself - or that you are a failure or have let yourself or your family down: not at all 7. Trouble concentrating on things, such as reading the newspaper or watching television: not at all 8. Moving or speaking so slowly that other people could have noticed. Or the opposite - being so fidgety or restless that you have been moving around a lot more than usual: not at all 9. Thoughts that you would be better off or of hurting yourself in some way: not at all Total score: 0 Depression Screening Interpretation: Negative Depression Screening Done: Yes Source: Developed by Drs. Lencho Lowe, Paola Hong, Omar Kelley and colleagues, with an educational rosa from [employer]. Thrive Questionnaire Date Thrive assessed: 08/25/24 I am a: Patient What is your living situation today?: I have a steady place to live Within the past 12 months, did the food you bought not last and you didn't have the money to get more?: Never true Within the past 12 months, did you worry whether your food would run out before you got money to buy more?: Never true Do you have trouble paying for medicines?: No Do you have trouble getting transportation to medical appointments?: No Do you have trouble paying your heating and electricity bill?: No Do you have trouble taking care of your child, family member or friend?: No Do you have trouble with day-to-day activities such as bathing, preparing meals, shopping, managing finances, etc.?: No Are you currently unemployed and looking for a job?: No Are you interested in more education?: No Currently or been in a relationship where the following occur: No concerns reported THRIVE Score: 0 AUDIT C Alcohol Use Questionnaire (AUDIT-C) 1. How often do you have a drink containing alcohol?: Monthly or less 2. How many drinks containing alcohol do you have on a typical day when you are drinking?: 1 or 2 3. How often do you have six or more drinks on one occasion?: Never Total Score: 1 NELDA-7 AMB Questionnaire NELDA-7 Date NELDA - 7 assessed: 08/25/24 Feeling nervous, anxious, or on edge: 0 = Not at all Not being able to stop or control worryin = Not at all Worrying too much about different things: 0 = Not at all Trouble relaxin = Not at all Being so restless that it is hard to sit still: 0 = Not at all Becoming easily annoyed or irritable: 0 = Not at all Feeling afraid as if something awful might happen: 0 = Not at all Total NELDA-7 score (0-4 normal; 5-9 mild; 10-14 moderate; 15-21 severe): 0 Source: Developed by Drs. Lencho Lowe, Paola Hong, Omar Kelley and colleagues, with an educational rosa from [employer]. NELDA-7 Assessment Billing NELDA-7 Assessment Tool: NELDA-7 Assessment 93442 Physical exam (Primary Care) Vital Signs: Last Vital Signs Pulse 71 08/25/24 13:34 BP 132/70 08/25/24 13:34 Pulse Ox 95 08/25/24 13:34 Oxygen Delivery Method Room Air 08/25/24 13:34 BMI result Body Mass Index 25.2 Tobacco/Smoking Status: Tobacco use Status Tobacco use date assessed 08/25/24 08/25/24 13:37 Patient Tobacco Use Status Never used Tobacco 08/25/24 13:37 Tobacco use type Cigarette 08/25/24 13:37 e-Cigarette/Vaping Use Never Used 08/25/24 13:37 PHQ-9: PHQ-9 Score PHQ-9: Total score 0 08/25/24 13:58 Depression Screening Interpretation: Negative Thrive Assessment: Date of Thrive Assessment Date Thrive assessed 08/25/24 08/25/24 13:39 Currently or been in a relationship where the following occur: No concerns reported Const General: alert; No acute distress Eyes Conjunctivae: conjunctivae normal Resp Auscultation: clear to auscultation bilaterally Cardio Rate: regular rate Rhythm: regular rhythm GI Inspection: Yes normal to inspection Extrem General: Yes normal to inspection and No edema Results AMB Hemoglobin A1c AMB Hemoglobin A1c 7.0 % Last Edit by Nicole Freeman CMA on 08/25/24 13:59 Results Reviewed Results Reviewed: Laboratory Last Values Hgb A1c (Clinic) 7.0 % (4.0-6.0) H 08/25/24 13:39 Coding Level of Care Code Est Pt Level 4 (39100) Diagnoses Type 2 diabetes mellitus with hyperglycemia, without long-term current use of insulin E11.65 Diabetes mellitus halfway insulin use: without terminal gauger supervisor use Essential hypertension I10 Hypertension type: essential hypertension Hypercholesterolemia E78.00 Generalized anxiety disorder F41.1 Viral respiratory illness J98.8; B97.89 Additional Codes NELDA-7 Assessment Billing - NELDA-7 Assessment Tool: NELDA-7 Assessment 34916 ([id number]) Assessment & Plan Assessment & Plan (1) Type 2 diabetes mellitus with hyperglycemia: Comment: [facility] September 2021, 2022 Eyesight and surgery Ass. [id number] Code(s): E11.65 - Type 2 diabetes mellitus with hyperglycemia Category: Medical Qualifiers: Diabetes mellitus terminal gauger supervisor insulin use: without terminal gauger supervisor use Qualified Code(s): E11.65 - Type 2 diabetes mellitus with hyperglycemia Plan: Decrease the amount of carbohydrate intake, pasta, bread, rice and potatoes are all sugar and that is aside from all the sweet stuff, remember that fruits are good but they are Sweet also. Hemoglobin A1c goal of less than 7.0 patient takes glimepiride 4 mg once a day (2) Hypertension: Code(s): I10 - Essential (primary) hypertension Category: Medical Qualifiers: Hypertension type: essential hypertension Qualified Code(s): I10 - Essential (primary) hypertension Plan: Continue with blood pressure medication. Decrease salt intake and exercise on olmesartan 20 mg once a day (3) Hypercholesterolemia: Code(s): E78.00 - Pure hypercholesterolemia, unspecified Category: Medical Plan: Avoid fried foods, chicken skin, eggs, butter margarine, pastries and meat. Be it pork or beef they have a lot of cholesterol LDL goal of less than 100 and triglyceride of less than 150 last blood work was done in October will need another request for blood test. (4) Generalized anxiety disorder: Code(s): F41.1 - Generalized anxiety disorder Category: Medical Plan: Stable (5) Viral respiratory illness: Code(s): J98.8 - Other specified respiratory disorders; B97.89 - Other viral agents as the cause of diseases classified elsewhere Category: Medical Plan: increase fluid intake, rest can take tylenol Plan History of Present Illness History of Present Illness The patient is a 73-year-old female presenting with diabetes management and recent respiratory symptoms. The patient has a history of diabetes mellitus, rheumatoid arthritis, essential hypertension, hypercholesterolemia, and generalized anxiety disorder. Blood work from October was noted with normal blood count, electrolytes, and renal function. Hemoglobin A1c was last measured at 7.3 in February, with an LDL cholesterol value of 92. The target for diabetes management is a hemoglobin A1c of less than 7.0. Recent weight measurements showed a fluctuation, currently at 129 pounds. The patient has been experiencing a cough for about a week, starting suddenly without fever, sore throat, ear pain, post-nasal drip, or respiratory distress. The cough seems to be improving. The patient is self-isolated and reports no muscle aches or bacterial infection signs. No antibiotics or further intervention initiated aside from symptomatic treatment. Eye examination is scheduled next month. Physical Exam - Throat- No signs of bacterial infection; appears normal. - Ears- Normal examination, no signs of infection noted. Plan Patient was informed and verbally consented to the use of an ambient scribe for clinic note documentation during this visit. 1. Diabetes Mellitus Patient's hemoglobin A1c is currently at 7.0, with a target of less than 7.0. HBA1c showed 7.3 in February. The patient continues on glimepiride 4 mg once daily with noted stable glucose levels. Encouraged ongoing monitoring and lifestyle modifications including regular physical activity. Blood work to be repeated within the next three months, ensuring fasting before the test. 2. Acute Viral Upper Respiratory Infection Viral upper respiratory infection diagnosed based on symptomatology, recommending symptomatic management including adequate hydration and rest. Advised the use of Tylenol PRN for discomfort and prescribed a cough suppressant to be taken as needed up to three times daily. Patient advised to monitor symptoms, particularly for any signs of bacterial infection or worsening of condition. Orders: Orders Complete Blood Count Auto Diff 3 Months . - Type 2 diabetes mellitus with hyperglycemia Free T4 (Free Thyroxine) 3 Months - Type 2 diabetes mellitus with hyperglycemia Microalbumin, Random (w Creat) 3 Months - Type 2 diabetes mellitus with hyperglycemia Hemoglobin A1c 3 Months - Type 2 diabetes mellitus with hyperglycemia AMB Hemoglobin A1c Today Z13.9 - Encounter for screening, unspecified Comprehensive Met. Panel 3 Months E11.65 - Type 2 diabetes mellitus with hyperglycemia Creatinine Urine 3 Months E11.65 - Type 2 diabetes mellitus with hyperglycemia Lipid Panel 3 Months E11.65 - Type 2 diabetes mellitus with hyperglycemia, E78.00 - Pure hypercholesterolemia, unspecified Thyroid Stimulating Hormone 3 Months E11.65 - Type 2 diabetes mellitus with hyperglycemia Vitamin D 25-OH Total 3 Months E11.65 - Type 2 diabetes mellitus with hyperglycemia Vitamin B12 and Folate 3 Months E11.65 - Type 2 diabetes mellitus with hyperglycemia Medications: New benzonatate 200 mg PO BID-TID PRN 20 caps 0RF cough B97.89 - Other viral agents as the cause of diseases classified elsewhere, J98.8 - Other specified respiratory disorders Refilled cholecalciferol (vitamin D3) 25 mcg PO DAILY 90 tabs 3RF 90 days E11.65 - Type 2 diabetes mellitus with hyperglycemia olmesartan 20 mg PO DAILY 90 tabs 2RF I10 - Essential (primary) hypertension lancets (FreeStyle Lancets) 28 gauge topical DAILY 100 caps 3RF for diabetes mellitus E11.65 - Type 2 diabetes mellitus with hyperglycemia simvastatin 40 mg PO BEDTIME 90 tabs 2RF E78.00 - Pure hypercholesterolemia, unspecified
--- OUTSIDE RECORDS SUMMARY | 2024-08-25 13:54 | XMS_ITS | Clinical Summary ---
Author Organization [facility] Address [address] [place] [address] Care Team Providers Care Survey Associate Name Role Phone Unavailable Primary Care Provider Unavailabl e Social History Tobacco Use Types Packs/Day Years Used Date Smoking Tobacco: Never Assessed Comments Unknown Sex and Gender Information Value Date Recorded Sex Assigned at Not on file Legal Sex Female 5:01 AM EST Gender Identity Not on file Sexual Orientation Not on file Plan of Treatment Health Maintenance Due Date Last Done Comments Breast Cancer Screening 1950 DTaP,Tdap,and Td Vaccines (1 - Tdap) 1969 Pneumococcal Vaccine: 50+ Ye ars (1 of 1 - PCV) 2000 Zoster Vaccines (1 of 2) 2000 COVID-19 Vaccine ( - 2023-2 5 season) 2024 Influenza Vaccine (#1) 2024 RSV Immunization Patients 60 + Years Old (1 - 1-dose 75+ series) 2025 HIB Vaccines Aged Out No longer eligi ble based on patient's age to complete this topic HPV Vaccines Aged Out No longer eligi ble based on patient's age to complete this topic Hepatitis A Vaccines Aged Out No long er eligible based on patient's age to complete this topic Hepatitis B Vaccines Aged Out No long er eligible based on patient's age to complete this topic IPV Vaccines Aged Out No longer eligi ble based on patient's age to complete this topic MMR Vaccines Aged Out No longer eligi ble based on patient's age to complete this topic Meningococcal ACWY Vaccine Aged Out N o longer eligible based on patient's age to complete this topic Meningococcal B Vacine Aged Out No lo nger eligible based on patient's age to complete this topic RSV Immunization Patients Un daisy 20 months Aged Out No longer eligible b ased on patient's age to complete this topic Varicella Vaccines Aged Out No longer eligible based on patient's age to complete this topic
== END 2024-08-25 14:03 | disposition home or self-care (01) ==
PROVIDERS: PCP Internal Medicine; Visit Provider Internal Medicine
DX: E11.65 Type 2 diabetes mellitus with hyperglycemia (principal); I10 Essential (primary) hypertension; E78.00 Pure hypercholesterolemia, unspecified; F41.1 Generalized anxiety disorder; J98.8 Other specified respiratory disorders; B97.89 Other viral agents as the cause of diseases classified elsewhere; Z13.9 Encounter for screening, unspecified

== ENCOUNTER → 2024-08-25 13:31 | Outpatient (BNVA) | payer MEDICARE, SELFPAY | PROVIDERS: PCP Internal Medicine; Visit Provider Internal Medicine | DX: E11.65 Type 2 diabetes mellitus with hyperglycemia (principal); E78.00 Pure hypercholesterolemia, unspecified; F41.1 Generalized anxiety disorder; I10 Essential (primary) hypertension; J98.8 Other specified respiratory disorders; B97.89 Other viral agents as the cause of diseases classified elsewhere | CPT/HCPCS: 83036; 96127; 99212 ==

== ENCOUNTER 2024-11-28 09:25 | Outpatient (REF) | payer OTHER, SELFPAY ==
[2024-11-28 09:52] LABS: MANUAL DIFF FLAG NO
--- OUTSIDE RECORDS SUMMARY | 2024-11-28 10:01 | XMS_ITS | Clinical Summary ---
Author Organization [facility] Address [address] [place] [address] Care Team Providers Care Cattle Feeder Name Role Phone Unavailable Primary Care Provider [...] - 2023-2 5 season) 2024 Influenza Vaccine (Season Ended) 2025 RSV Immunization Adult Patie nts (1 - 1-dose 75+ series) 2025 HIB [...] age to complete this topic Meningococcal B Vaccine Aged Out No l onger eligible based on patient's age to complete this topic RSV Immunization Patients Un daisy 20 months Aged Out No longer eligible b ased on patient's age to complete this topic Varicella Vaccines Aged Out No longer eligible based on patient's age to complete this topic
[2024-11-28 10:16] LABS: Basophils Absolute Auto 0.1 X10*3/uL (0.0-0.2); Basophils Percent Auto 0.7 % (0-2); Eosinophils Absolute Auto 0.2 X10*3/uL (0.0-0.4); Eosinophils Percent Auto 2.5 % (0-4); Hematocrit 37.8 % (37.0-47.0); Hemoglobin 12.5 g/dl (12.0-16.0); Imm Gran Abs Auto 0.02 X10*3/uL (0.00-0.03); Imm Gran Pct Auto 0.2 % (0.0-0.4); Lymphocytes Absolute Auto 2.2 X10*3/uL (1.2-4.9); Lymphocytes Percent Auto 25.6 % (20-40); Mean Corpuscular HGB Conc 33.1 g/dl (31.0-35.0); Mean Corpuscular Hemoglobin 28.7 pg (27.0-33.0); Mean Corpuscular Volume 86.7 fL (80.0-98.0); Mean Platelet Volume 9.2 fL (9.4-12.3); Monocytes Absolute Auto 0.6 X10*3/uL (0.1-1.2); Monocytes Percent Auto 6.7 % (2-11); Neutrophils Absolute Auto 5.4 x10*3/uL (2.0-8.3); Neutrophils Percent Auto 64.3 % (45-73); Platelet Count 311 X10*3/uL (160-400); Red Blood Count 4.36 X10*6/uL (4.20-5.50); White Blood Count 8.4 X10*3/uL (4.8-10.8)
[2024-11-28 10:21] LABS: Estimated Average Glucose 148 mg/dL; Hemoglobin A1c % 6.8 % (<6.0)
[2024-11-28 11:15] LABS: Alanine Aminotransferase 13 U/L (0-31); Albumin Level 4.2 g/dL (3.5-5.0); Alkaline Phosphatase 100 U/L (39-117); Anion Gap 12 (12-20); Aspartate Amino Transferase 21 U/L (5-31); Bilirubin Total 0.2 mg/dL (0.0-1.0); Blood Urea Nitrogen 21 mg/dL (9-16); Calcium 9.8 mg/dL (8.4-10.2); Carbon Dioxide 26 mmol/L (22-29); Chloride 108 mmol/L (96-108); Cholesterol 142 mg/dL (<200); Estimated Glomerular Filt Rate > 60; Free T4 (Free Thyroxine) 0.93 ng/dL (0.71-1.85); Glucose Random 146 mg/dL (60-115); HDL Cholesterol 48 mg/dL (>40); LDL Cholesterol Calculated 79 mg/dL (<100); Potassium 4.3 mmol/L (3.3-5.1); Sodium 142 mmol/L (135-145); Thyroid Stimulating Hormone 1.04 uIU/mL (0.32-4.0); Total Protein 7.4 g/dL (6.5-8.0); Triglycerides 79 mg/dL (<150); Vitamin D 25-OH Total 40.1 ng/mL (>30)
[2024-11-28 11:32] LABS: Creatinine Urine 101.01 mg/dL; Microalbum/Creatinine Ratio Ur 5.9 ug/mg cr (<30)
[2024-11-28 11:40] LABS: Folate 8.7 ng/mL (> or = 4.0); Vitamin B12 451 pg/mL (200-900)
== END 2024-11-28 09:26 | disposition home or self-care (01) ==
LOC: HO.LAB 09:25
PROVIDERS: PCP Internal Medicine; Visit Provider Internal Medicine
DX: E11.65 Type 2 diabetes mellitus with hyperglycemia (principal); E78.00 Pure hypercholesterolemia, unspecified
CPT/HCPCS: 36415; 80053; 80061; 82043; 82306; 82570; 82607; 82746; 83036; 84439; 84443; 85025

== ENCOUNTER 2024-12-01 12:50 | Outpatient (AMB) | payer MEDICARE, SELFPAY ==
--- NOTE | 2024-12-01 12:55 | MHC.PC.OV ---
Vital Signs 12/01/24 12:57 Height 5 ft Weight 131 lb 2 oz BMI 25.6 BP 110/68 Blood Pressure Location Lt brachial Position Sitting Pulse 88 Pulse Source Pulse Oximeter Temp 97.1 F Temp Source Temporal Artery Scan Pulse Oximetry (%) 97 Oxygen Delivery Method Room Air Intake Visit Reasons: 3 MON FUP-NEEDS A1C & Breast Cx Screen. Intake Note: Patient is here to follow up on DM. Paste Up Copy Camera Operator Required: No Hvac Residential Service Technician: Not Required per policy Accompanied by: Self / Same As Patient Allergies lisinopril Allergy (Unknown, Verified 12/01/24 12:56) Unknown metformin Allergy (Unknown, Verified 12/01/24 12:56) unknown Medication List - Last Reconciled 12/01/24 by Grey Jaeger MD blood pressure monitor (Blood Pressure Kit) As directed blood sugar diagnostic (FreeStyle Lite Strips) 1 strip miscellaneous DAILY cholecalciferol (vitamin D3) 25 mcg PO DAILY 90 days glimepiride 4 mg PO QAM lancets (FreeStyle Lancets) 28 gauge topical DAILY olmesartan 20 mg PO DAILY simvastatin 40 mg PO BEDTIME Tobacco use date assessed: 12/01/24 Fall risk assessment: No Falls in past year Last assessed Fall Risk: 12/01/24 Dental Screening Dental Screen Date: 08/25/24 [facility] Medical History (Updated 08/25/24 @ 13:59 by Grey Jaeger MD) Osteopenia Meléndez's palsy Hypertension Hypercholesterolemia Vitamin D deficiency Overweight (BMI 25.0-29.9) Rheumatoid arthritis Type 2 diabetes mellitus with hyperglycemia Surgical History No pertinent past surgical history Family History Father Diabetes Mother Diabetes Hypertension Brother Brain cancer Maternal Grandfather Colon cancer Social History Housing: Apartment Alcohol intake: current Alcohol intake frequency: holidays/special occasions only Patient Tobacco Use Status: Never used Tobacco Tobacco use type: Cigarette e-Cigarette/Vaping Use: Never Used Second Hand Smoke Exposure: No service: No Current occupational status: retired Cognitive needs: No Hearing needs: No Vision needs: Yes (reading glasses) Questionnaire PHQ-9 Over the last 2 weeks, how often have you been bothered by any of the following problems? 1. Little interest or pleasure in doing things: not at all 2. Feeling down, depressed, or hopeless: not at all 3. Trouble falling or staying asleep, or sleeping too much: not at all 4. Feeling tired or having little energy: not at all 5. Poor appetite or overeating: not at all 6. Feeling bad about yourself - or that you are a failure or have let yourself or your family down: not at all 7. Trouble concentrating on things, such as reading the newspaper or watching television: not at all 8. Moving or speaking so slowly that other people could have noticed. Or the opposite - being so fidgety or restless that you have been moving around a lot more than usual: not at all 9. Thoughts that you would be better off or of hurting yourself in some way: not at all Total score: 0 Depression Screening Interpretation: Negative Depression Screening Done: Yes 23441 - PHQ-9 Billing: Yes Source: Developed by Drs. Lencho Lowe, Paola Hong, Omar Kelley and colleagues, with an educational rosa from [employer]. Thrive Questionnaire Date Thrive assessed: 08/25/24 I am a: Patient What is your living situation today?: I have a steady place to live Within the past 12 months, did the food you bought not last and you didn't have the money to get more?: Never true Within the past 12 months, did you worry whether your food would run out before you got money to buy more?: Never true Do you have trouble paying for medicines?: No Do you have trouble getting transportation to medical appointments?: No Do you have trouble paying your heating and electricity bill?: No Do you have trouble taking care of your child, family member or friend?: No Do you have trouble with day-to-day activities such as bathing, preparing meals, shopping, managing finances, etc.?: No Are you currently unemployed and looking for a job?: Yes Are you interested in more education?: No Please select the resources that you would like help with: None Currently or been in a relationship where the following occur: No concerns reported THRIVE Score: 0 AUDIT C Alcohol Use Questionnaire (AUDIT-C) 1. How often do you have a drink containing alcohol?: Never Total Score: 0 NELDA-7 AMB Questionnaire NELDA-7 Date NELDA - 7 assessed: 08/25/24 Feeling nervous, anxious, or on edge: 0 = Not at all Not being able to stop or control worryin = Not at all Worrying too much about different things: 0 = Not at all Trouble relaxin = Not at all Being so restless that it is hard to sit still: 0 = Not at all Becoming easily annoyed or irritable: 0 = Not at all Feeling afraid as if something awful might happen: 0 = Not at all Total NELDA-7 score (0-4 normal; 5-9 mild; 10-14 moderate; 15-21 severe): 0 Source: Developed by Drs. Lencho Lowe, Paola Hong, Omar Kelley and colleagues, with an educational rosa from [employer]. Physical exam (Primary Care) Vital Signs: Last Vital Signs Temp 97.1 F 12/01/24 12:57 Pulse 88 12/01/24 12:57 BP 110/68 12/01/24 12:57 Pulse Ox 97 12/01/24 12:57 Oxygen Delivery Method Room Air 12/01/24 12:57 BMI result Body Mass Index 25.6 Tobacco/Smoking Status: Tobacco use Status Tobacco use date assessed 12/01/24 12/01/24 13:02 Patient Tobacco Use Status Never used Tobacco 12/01/24 13:02 Tobacco use type Cigarette 12/01/24 13:02 e-Cigarette/Vaping Use Never Used 12/01/24 13:02 PHQ-9: PHQ-9 Score PHQ-9: Total score 0 12/01/24 13:02 Depression Screening Interpretation: Negative Thrive Assessment: Date of Thrive Assessment Date Thrive assessed 08/25/24 12/01/24 13:02 Currently or been in a relationship where the following occur: No concerns reported Const General: alert; No acute distress Eyes Conjunctivae: conjunctivae normal Resp Auscultation: clear to auscultation bilaterally Cardio Rate: regular rate Rhythm: regular rhythm GI Inspection: Yes normal to inspection Extrem General: Yes normal to inspection and No edema Coding Level of Care Code Est Pt Level 4 (84765) Diagnoses Type 2 diabetes mellitus with hyperglycemia, without long-term current use of insulin E11.65 Diabetes mellitus intermediate school teacher insulin use: without assisted use Essential hypertension I10 Hypertension type: essential hypertension Hypercholesterolemia E78.00 Generalized anxiety disorder F41.1 Additional Codes PHQ-9 - 55370 - PHQ-9 Billing: Yes ([id number]) Assessment & Plan Assessment & Plan (1) Type 2 diabetes mellitus with hyperglycemia: Comment: [facility] September [id number] Eyesight and surgery Ass. [id number] Code(s): E11.65 - Type 2 diabetes mellitus with hyperglycemia Category: Medical Qualifiers: Diabetes mellitus assisted insulin use: without intermediate school teacher use Qualified Code(s): E11.65 - Type 2 diabetes mellitus with hyperglycemia Plan: Decrease the amount of carbohydrate intake, pasta, bread, rice and potatoes are all sugar and that is aside from all the sweet stuff, remember that fruits are good but they are Sweet also. On glimepiride 4 mg once (2) Hypertension: Code(s): I10 - Essential (primary) hypertension Category: Medical Qualifiers: Hypertension type: essential hypertension Qualified Code(s): I10 - Essential (primary) hypertension Plan: y Continue with blood pressure medication. Decrease salt intake and exercise continue on with olmesartan 20 mg once a day (3) Hypercholesterolemia: Code(s): E78.00 - Pure hypercholesterolemia, unspecified Category: Medical Plan: Avoid fried foods, chicken skin, eggs, butter margarine, pastries and meat. Be it pork or beef they have a lot of cholesterol LDL goal of less than 100 and triglyceride of less than 150. Patient is taking simvastatin 40 mg once a day (4) Generalized anxiety disorder: Code(s): F41.1 - Generalized anxiety disorder Category: Medical Plan: stable Plan History of Present Illness The patient is a 74-year-old female presenting for a follow-up appointment to review her health management and recent blood work results. The patient has a long-standing history of diabetes mellitus, rheumatoid arthritis, essential hypertension, hypercholesterolemia, and generalized anxiety disorder. Her recent laboratory tests showed normal blood levels, with a blood sugar reading of 146 mg/dL and Hemoglobin A1c at 6.8%. Cholesterol management is achieved with an LDL of 79 mg/dL, and she's on simvastatin therapy. The patient maintains diabetes management with glimepiride and blood pressure control with olmesartan. No new symptoms or complaints were noted during this visit, and current health measures seem effective. Health Maintenance - Discussed shingles vaccination; patient has received the first dose. - Encouraged hydration and healthy dietary habits. - Counselled on maintaining current weight within a normal range. - Highlighted the importance of regular physical activity. Social History - Exercises regularly, maintaining adequate physical activity. - Focuses on drinking enough water and eating healthily. - Demonstrating successful weight maintenance. Review of Systems - General: Denies significant weight changes; weight stable. - Neurological/Psychiatric: Denies new anxiety symptoms. Physical Exam Results - Labs: Normal blood count; no anemia, normal electrolytes, stable renal function. - Labs: Blood sugar at 146 mg/dL, Hemoglobin A1c 6.8%. - Labs: LDL cholesterol 79 mg/dL, normal B12, folic acid, vitamin D levels, no proteinuria in urine. Plan The patient's diabetes management strategy will include continuing glimepiride 4 mg daily, with regular checks on blood glucose levels to ensure continued control. The current antihypertensive regimen with olmesartan 20 mg daily and cholesterol management using simvastatin 40 mg daily are effective, thereby necessitating no changes. Encouragement towards maintaining a healthy lifestyle, including a proper diet, staying hydrated, and being physically active remains vital. Although she expressed discomfort with the shingles vaccination, she is aware of its benefits and may decide to proceed with the second dose at her discretion. A follow-up is prudent to reassess her medication efficacy and overall health status. Patient was informed and verbally consented to the use of an ambient scribe for clinic note documentation during this visit. Discussion Notes I discussed the patient's current management and treatment options based on her recent lab results and ongoing conditions. Blood glucose levels are moderately controlled with her current regimen; no adjustments were deemed necessary at this time. We reviewed her risk factors for cardiovascular health, and her cholesterol levels align well with the targets set via simvastatin therapy. The patient has received the first shingles vaccine dose, though she expressed personal apprehension regarding further vaccination. I provided comprehensive education on its benefits but respected her decision to reconsider. Lifestyle modifications emphasizing exercise and a balanced diet were encouraged with reassurances given on her stable weight. A follow-up in three months was planned to reassess her health and medication needs. Patient Instructions - Continue taking glimepiride 4 mg once daily. - Maintain olmesartan 20 mg and simvastatin 40 mg daily as prescribed. - Drink plenty of water and eat a balanced diet. - Keep up with regular physical activity. - Monitor blood sugar levels regularly. - Consider the second dose of the shingles vaccine based on personal decision. - Return for a follow-up visit in three months. Medications: Refilled lancets (FreeStyle Lancets) 28 gauge topical DAILY 100 caps 3RF for diabetes mellitus E11.65 - Type 2 diabetes mellitus with hyperglycemia cholecalciferol (vitamin D3) 25 mcg PO DAILY 90 days 90 tabs 3RF E11.65 - Type 2 diabetes mellitus with hyperglycemia
[2024-12-01 12:57] VITALS: BP 110/68; PULSE 88; TEMP 36.2; O2SAT 97; BMI 25.6
--- OUTSIDE RECORDS SUMMARY | 2024-12-01 13:06 | XMS_ITS | Clinical Summary ---
Author Organization [facility] Address [address] [place] [address] Care Team Providers Care Motion Graphics Designer Name Role Phone Unavailable Primary Care Provider [...]
== END 2024-12-01 13:25 | disposition home or self-care (01) ==
LOC: HO.HMCH 12:51
PROVIDERS: PCP Internal Medicine; Visit Provider Internal Medicine
DX: E11.65 Type 2 diabetes mellitus with hyperglycemia (principal); I10 Essential (primary) hypertension; E78.00 Pure hypercholesterolemia, unspecified; F41.1 Generalized anxiety disorder

== ENCOUNTER → 2024-12-01 12:50 | Outpatient (BNVA) | payer OTHER, SELFPAY | PROVIDERS: PCP Internal Medicine; Visit Provider Internal Medicine | DX: E11.65 Type 2 diabetes mellitus with hyperglycemia (principal); I10 Essential (primary) hypertension; E78.00 Pure hypercholesterolemia, unspecified; F41.1 Generalized anxiety disorder; Z13.31 Encounter for screening for depression | CPT/HCPCS: 96127; 99212 ==

== ENCOUNTER 2025-04-04 12:46 | Outpatient (AMB) | payer MEDICARE, SELFPAY ==
--- NOTE | 2025-04-04 12:55 | A.OFFPC_ITS ---
Vital Signs 04/04/25 12:56 Height 5 ft Weight 129 lb 6 oz BMI 25.3 BP 120/68 Blood Pressure Location Lt brachial Position Sitting Pulse 88 Pulse Source Pulse Oximeter Temp 97.7 F Temp Source Temporal Artery Scan Pulse Oximetry (%) 98 Oxygen Delivery Method Room Air Intake Visit Reasons: DM Intake Note: Patient is here to follow up on DM. Web Site Administrator Required: No Customer Solutions Architect: Not Required per policy Accompanied by: Self / Same As Patient Allergies lisinopril Allergy (Unknown, Verified 04/04/25 12:56) Unknown metformin Allergy (Unknown, Verified 04/04/25 12:56) unknown Tobacco use date assessed: 04/04/25 Fall risk assessment: No Falls in past year Last assessed Fall Risk: 04/04/25 Dental Screening Dental Screen Date: 08/25/24 HPI DM HPI Details PAtient has cataract and will be seeing 05/08 and 05/21 [facility] Medical History (Updated 08/25/24 @ 13:59 by Grey Jaeger MD) Osteopenia Meléndez's palsy Hypertension Hypercholesterolemia Vitamin D deficiency Overweight (BMI 25.0-29.9) Rheumatoid arthritis Type 2 diabetes mellitus with hyperglycemia Surgical History No pertinent past surgical history Family History Father Diabetes Mother Diabetes Hypertension Brother Brain cancer Maternal Grandfather Colon cancer Social History Housing: Apartment Alcohol intake: current Alcohol intake frequency: holidays/special occasions only Patient Tobacco Use Status: Never used Tobacco Tobacco use type: Cigarette e-Cigarette/Vaping Use: Never Used Second Hand Smoke Exposure: No service: No Current occupational status: retired Cognitive needs: No Hearing needs: No Vision needs: Yes (reading glasses) Questionnaire Thrive Questionnaire Date Thrive assessed: 12/01/24 I am a: Patient What is your living situation today?: I have a steady place to live Within the past 12 months, did the food you bought not last and you didn't have the money to get more?: Never true Within the past 12 months, did you worry whether your food would run out before you got money to buy more?: Never true Do you have trouble paying for medicines?: No Do you have trouble getting transportation to medical appointments?: No Do you have trouble paying your heating and electricity bill?: No Do you have trouble taking care of your child, family member or friend?: No Do you have trouble with day-to-day activities such as bathing, preparing meals, shopping, managing finances, etc.?: No Are you currently unemployed and looking for a job?: Yes Are you interested in more education?: No Please select the resources that you would like help with: None Currently or been in a relationship where the following occur: No concerns reported THRIVE Score: 0 NELDA-7 AMB Questionnaire NELDA-7 Date NELDA - 7 assessed: 08/25/24 Source: Developed by Drs. Lencho Lowe, Paola Hong, Omar Kelley and colleagues, with an educational rosa from [employer]. Physical exam (Primary Care) Vital Signs: Last Vital Signs Temp 97.7 F 04/04/25 12:56 Pulse 88 04/04/25 12:56 BP 120/68 04/04/25 12:56 Pulse Ox 98 04/04/25 12:56 Oxygen Delivery Method Room Air 04/04/25 12:56 BMI result Body Mass Index 25.3 Tobacco/Smoking Status: Tobacco use Status Tobacco use date assessed 04/04/25 04/04/25 13:04 Patient Tobacco Use Status Never used Tobacco 04/04/25 13:04 Tobacco use type Cigarette 04/04/25 13:04 e-Cigarette/Vaping Use Never Used 04/04/25 13:04 Thrive Assessment: Date of Thrive Assessment Date Thrive assessed 12/01/24 04/04/25 13:04 Currently or been in a relationship where the following occur: No concerns reported Const General: alert; No acute distress Eyes Conjunctivae: conjunctivae normal Resp Auscultation: clear to auscultation bilaterally Cardio Rate: regular rate Rhythm: regular rhythm GI Inspection: Yes normal to inspection Extrem General: Yes normal to inspection and No edema Results AMB Hemoglobin A1c AMB Hemoglobin A1c 6.7 % Last Edit by JIA Rodríguez on 04/04/25 13:09 Coding Level of Care Code Est Pt Level 4 (22413) Complex EM visit Add On G2211 Diagnoses Type 2 diabetes mellitus with hyperglycemia, without long-term current use of insulin E11.65 Diabetes mellitus marine oil terminal superintendent insulin use: without marine oil terminal superintendent use Essential hypertension I10 Hypertension type: essential hypertension Hypercholesterolemia E78.00 Generalized anxiety disorder F41.1 Rheumatoid arthritis, involving unspecified site, unspecified whether rheumatoid factor present M06.9 Rheumatoid arthritis location: unspecified site Rheumatoid factor presence: unspecified presence Assessment & Plan Assessment & Plan (1) Type 2 diabetes mellitus with hyperglycemia: Comment: [facility] September 2021, 2022 Eyesight and surgery Ass. [id number] Code(s): E11.65 - Type 2 diabetes mellitus with hyperglycemia Category: Medical Qualifiers: Diabetes mellitus prison insulin use: without prison use Qualified Code(s): E11.65 - Type 2 diabetes mellitus with hyperglycemia Plan: Decrease the amount of carbohydrate intake, pasta, bread, rice and potatoes are all sugar and that is aside from all the sweet stuff, remember that fruits are good but they are Sweet also. Hemoglobin A1c goal of less than 7.0 on glimepiride 4 mg once a day (2) Hypertension: Code(s): I10 - Essential (primary) hypertension Category: Medical Qualifiers: Hypertension type: essential hypertension Qualified Code(s): I10 - Essential (primary) hypertension Plan: Continue with blood pressure medication. Decrease salt intake and exercise on olmesartan 20 mg once a day (3) Hypercholesterolemia: Code(s): E78.00 - Pure hypercholesterolemia, unspecified Category: Medical Plan: Avoid fried foods, chicken skin, eggs, butter margarine, pastries and meat. Be it pork or beef they have a lot of cholesterol LDL goal of less than 100 and triglyceride of less than 150 November 2024 last blood work (4) Generalized anxiety disorder: Code(s): F41.1 - Generalized anxiety disorder Category: Medical Plan: Stable (5) Rheumatoid arthritis: Code(s): M06.9 - Rheumatoid arthritis, unspecified Category: Medical Qualifiers: Rheumatoid arthritis location: unspecified site Rheumatoid factor presence: unspecified presence Qualified Code(s): M06.9 - Rheumatoid arthritis, unspecified Plan: Stable Plan History of Present Illness The patient is a 74-year-old female presenting for a follow-up visit. She has a history of diabetes mellitus, with her last hemoglobin A1c recorded at 6.8 in November 2024, indicating good control, though there is room for improvement. Her fasting blood sugar was 146 mg/dL at that time. She is currently on glimepiride 4 mg once daily, with a goal to maintain hemoglobin A1c below 7.0. The patient also has a history of hypertension, managed with losartan 20 mg once daily. Her blood pressure readings have been stable, and she reports no chest pain or dyspnea. She has hypercholesterolemia, with her LDL cholesterol well-controlled at 79 mg/dL, below the target of less than 100 mg/dL. The patient has rheumatoid arthritis and generalized anxiety disorder, though specific details of their management were not discussed in this visit. She has osteopenia, and her last bone density assessment was not mentioned. Preventative care measures discussed include the recommendation for a flu vaccine in April and consideration of the shingles vaccine, which she is hesitant about due to a dislike of needles. The patient is also scheduled for cataract surgery, with appointments on May 08 and . Health Maintenance - Flu vaccine recommended for April - Shingles vaccine discussed, available at pharmacy Social History - Reports missing meals frequently, impacting diabetes management - Expresses emotional distress related to personal relationships, impacting mental health Review of Systems - Cardiovascular: Denies chest pain, dyspnea - Respiratory: Denies cough, reports regular breathing - Gastrointestinal: Denies constipation, reports normal bowel movements Physical Exam - Respiratory: Regular breathing observed Results - Labs: Normal blood count, normal electrolytes, normal liver and kidney function, LDL cholesterol at 79 mg/dL, fasting blood sugar at 146 mg/dL, hemoglobin A1c at 6.8, normal thyroid function, no proteinuria Plan Patient was informed and verbally consented to the use of an ambient scribe for clinic note documentation during this visit. 1. Diabetes Mellitus The patient's diabetes mellitus is currently managed with glimepiride 4 mg once daily, aiming to maintain hemoglobin A1c below 7.0. Her last hemoglobin A1c was 6.8, indicating good control, though there is room for improvement. The patient is advised not to miss meals to prevent hypoglycemia due to the medication's action. 2. Hypertension Hypertension is managed with losartan 20 mg once daily, with stable blood pre ssure readings reported. 3. Hypercholesterolemia The patient's hypercholesterolemia is well-controlled with an LDL cholesterol level of 79 mg/dL, below the target of less than 100 mg/dL. 4. Preventative Care Preventative care measures include a recommendation for a flu vaccine in April and consideration of the shingles vaccine, which the patient is hesitant about due to a dislike of needles. Discussion Notes During the visit, we discussed the management of diabetes mellitus, emphasizing the importance of not missing meals to prevent hypoglycemia due to glimepiride. We also reviewed the patient's stable hypertension and well-controlled hypercholesterolemia. Preventative care measures were discussed, including the recommendation for a flu vaccine in April and consideration of the shingles vaccine. Patient Instructions - Do not miss meals to prevent low blood sugar due to diabetes medication. - Consider getting a flu vaccine in April. - Consider the shingles vaccine, available at the pharmacy. Orders: Orders AMB Hemoglobin A1c Today E11.65 - Type 2 diabetes mellitus with hyperglycemia
[2025-04-04 12:56] VITALS: BP 120/68; PULSE 88; TEMP 36.5; O2SAT 98; BMI 25.3
--- OUTSIDE RECORDS SUMMARY | 2025-04-04 14:06 | XMS_ITS | Clinical Summary ---
[facility] Address [address] [place] [address] Care Team Providers Care Procurement Cost Coordinator Name Role Phone Unavailable Primary Care Provider [...] 2000 Zoster Vaccines (1 of 2) 2000 Depression Screening 07/05/2024 COVID-19 Vaccine (1 - 2023-2 5 season) 2025 Influenza Vaccine (#1) 2025 RSV Immunization Adult Patie nts (1 [...]
== END 2025-04-04 13:22 | disposition home or self-care (01) ==
LOC: HO.HMCH 12:47
PROVIDERS: PCP Internal Medicine; Visit Provider Internal Medicine
DX: E11.65 Type 2 diabetes mellitus with hyperglycemia (principal); M06.9 Rheumatoid arthritis, unspecified; I10 Essential (primary) hypertension; E78.00 Pure hypercholesterolemia, unspecified; F41.1 Generalized anxiety disorder

== ENCOUNTER → 2025-04-04 12:46 | Outpatient (BNVA) | payer OTHER, SELFPAY | PROVIDERS: PCP Internal Medicine; Visit Provider Internal Medicine | DX: E11.65 Type 2 diabetes mellitus with hyperglycemia (principal); I10 Essential (primary) hypertension; E78.00 Pure hypercholesterolemia, unspecified; F41.1 Generalized anxiety disorder; M06.9 Rheumatoid arthritis, unspecified; M85.80 Other specified disorders of bone density and structure, unspecified site | CPT/HCPCS: 83036; 99212 ==